=== PATIENT | female | born 1970 | race African-American/Black ===

== ENCOUNTER 2017-06-24 05:18 | Day surgery (SDC) | payer OTHER ==
[~2017-06-24] VITALS: Ht 175.3 cm; Wt 69.9 kg
--- NOTE | ~2017-06-24 | O ---
[facility] [place] [address] OPERATIVE REPORT Name: DUDLEY GONZALEZ Room #: 150-7 [facility] M.R.#: [id number] Admission: 06/24/17 Attend Phys: Seven Simms MD Discharge: Date of : 70 Report #: [id number] THIS REPORT FOR: //name// CC: Kalpesh Simms DATE OF SERVICE: 06/24/[address] Seven Simms and Dr. Kalpesh Riggs at [facility]. PREOPERATIVE DIAGNOSIS: Ventral incisional umbilical hernia. POSTOPERATIVE DIAGNOSIS: Ventral incisional umbilical hernia. PROCEDURE: Repair of an incarcerated ventral incisional umbilical hernia. SURGEON: Seven Simms M.D. ANESTHESIA: Local IV sedation. DESCRIPTION OF PROCEDURE: The patient was brought to the operating room and placed on operative table in the supine position. Sequential compression devices were in place for DVT prophylaxis. There was no indication for preoperative antibiotics. The patient underwent IV sedation. The abdomen was then prepped and draped in a sterile fashion. Skin and subcutaneous tissue were then infiltrated with 0.5% Marcaine and 1% Xylocaine in a 1:1 mixture. Infraumbilical skin incision was performed through the previous incision scar using a #15 scalpel blade. Hemostasis obtained using electrocautery. Dissection was carried down through subcutaneous tissue to the fascial defect. There was some omentum incarcerated within the hernia defect and this was dissected free and reduced back into the abdomen. There was an extensive amount of scarring around this area and that was all freed up. After freeing up the fascial defect, this was then closed using interrupted aagmgy-zz-ehtma 0 Prolene sutures. Deep and superficial subcutaneous tissue were then reapproximated using simple interrupted 2-0 chromic sutures and the skin then closed with a running 4-0 subcuticular Vicryl stitch. Wound was then dressed with Dermabond, Telfa, 4 x 4 gauze, sponge and tape. The patient was then awakened from the IV sedation, taken to recovery room in good condition. Estimated blood loss was approximately 5-10 mL and the patient tolerated procedure well. All sponge, lap and instrument counts correct x 2. <ELECTRONICALLY SIGNED> By: Seven Simms MD 06/26/17 1217 0955 1006 Seven Simms MD /nt
--- NOTE | ~2017-06-24 | H ---
[facility] [place] [address] HISTORY AND PHYSICAL Name: DUDLEY GONZALEZ Room #: 150-7 [facility] M.R.#: [id number] Admission: 06/24/17 Attend Phys: Seven Simms MD Discharge: Date of : 70 Report #: [id number] THIS REPORT FOR: //name// CC: Kalpesh Simms DATE OF SERVICE: 06/24/[address] Seven Simms and Dr. Kalpesh Riggs at [facility] CHIEF COMPLAINT: Abdominal bulge. HISTORY OF PRESENT ILLNESS: The patient is a 47-year-old female who has had a history of three laparoscopies in the past and notices a bulge in the umbilicus recently. PAST MEDICAL HISTORY: Migraine headaches, pituitary tumor, gastroesophageal reflux disease, thyroid disease, MURRAY for uterine fibroids, 3 laparoscopies. MEDICATIONS: Ibuprofen, amitriptyline, Amerge. FAMILY HISTORY: Mother of chronic obstructive pulmonary disease, diabetes, hypertension, congestive heart failure and coronary artery disease with myocardial infarction. Father with history of hypertension. ALLERGIES: No known drug allergies. SOCIAL HISTORY: Single. She does smoke and drinks alcohol. Two children. She is employed at [employer]. REVIEW OF SYSTEMS: Pertinent positives as above. Full review of systems is otherwise negative. PHYSICAL EXAMINATION: GENERAL: This is a well-developed, well-nourished, pleasant female, in no acute distress. VITAL SIGNS: Stable. She is afebrile. Height is 5 feet 9 inches, weight is 154 pounds. HEENT: Sclerae is nonicteric. Mucous membranes moist and pink. NECK: There is no adenopathy. LUNGS: Clear to auscultation bilaterally. CARDIOVASCULAR: Regular rate and rhythm. No murmurs, S3, S4. Normal PMI. ABDOMEN: Soft, flat, nontender, no palpable masses, no organomegaly. There is a palpable partially incarcerated umbilical hernia. No other organomegaly or [facility] [address] [place] [address] HISTORY AND PHYSICAL [facility] Room #: [address] [place] [address] M.R.#: [id number] Admission: 06/24/17 Attend Phys: Seven Simms MD Discharge: Date of : 70 Report #: [id number] masses. EXTREMITIES: No clubbing, cyanosis or edema. NEUROLOGIC: Intact with a clear mental status. IMPRESSION: A 47-year-old female with an incarcerated ventral incisional umbilical hernia. I have fully discussed with the patient the diagnosis, prognosis, and treatment options. I have recommended a repair of this ventral incisional umbilical hernia under local IV sedation as an outpatient. She states she understands and agrees with proposed surgery. <ELECTRONICALLY SIGNED> By: Seven Simms MD 06/24/17 0958 0946 John Simms MD /marlin
[~2017-06-24 05:18] MED LIST: BENTYL 20 MG TA20 M1 PO; IBUPROFEN 200200 M1 PO; IBUPROFEN 600600 M1 PO; NAPROSYN500 MG PO; NOHOMEMEDICATIONS; NORCO 5-325 TA1 EACH PO; OMEPRAZOLE 20 M20 M1 PO; ONDANSETRON HCL4 M2 PO; PHENERGAN 25 MG25 M1 PO; TYLENOL EXTRA500 MG
[2017-06-24 07:07] VITALS: BP 106/69
[2017-06-24] MEDS ORDERED: NORCO 5-325 TA1 EACH PO (08:31)
[2017-06-24 10:23] VITALS: BP 106/69
[2017-08-24] MEDS ORDERED: CENTANY30 GM TOP (12:56)
[2017-08-24] MEDS ORDERED: HYDROCODONE-AP1 EAC6 PO (13:10)
== END 2017-06-25 11:00 | disposition home or self-care (01) ==
LOC: TBA 05:18 → OR 05:18
DX: K43.0 Incisional hernia with obstruction, without gangrene (principal); G43.909 Migraine, unspecified, not intractable, without status migrainosus; E03.9 Hypothyroidism, unspecified; K21.9 Gastro-esophageal reflux disease without esophagitis; F17.200 Nicotine dependence, unspecified, uncomplicated; Z90.710 Acquired absence of both cervix and uterus; Z98.890 Other specified postprocedural states; Z79.891 Long term (current) use of opiate analgesic
CPT/HCPCS: 50010; 50101; 50386; 50417; 54118; 56524; 56525; 56526; 62110; 62850; 70005

== ENCOUNTER 2017-08-22 22:47 | Emergency (ER) | payer OTHER ==
[~2017-08-22] VITALS: Ht 175.3 cm; Wt 69.0 kg
--- NOTE | ~2017-08-22 | EKG ---
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
--- NOTE | ~2017-08-22 | EKG ---
[facility] [place] [address] ELECTROCARDIOGRAM REPORT Name: DUDLEY GONZALEZ [facility] [id number] Admission: 08/22/17 Attend Phys: Discharge: 08/23/17 Date of : 70 Report #: [id number] THIS REPORT FOR: //name// 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 : 1970 Requested By: Matt Sutton Order Number: [id number] MD: Chava Kat Measurements Intervals [place] Rate: 66 P: 45 [place]: 166 QRS: 49 QRSD: 83 T: 33 QT: 405 QTc: 425 Interpretive Statements Sinus rhythm Anteroseptal infarct, age indeterminate No previous ECG available for comparison Electronically Signed On 08-24-2017 9:16:09 CDT by Chava Kat [email or web address] <ELECTRONICALLY SIGNED> By: Chava Kat MD, [facility] 08/24/17 0916 0110 0110 Chava Kat MD, FACC /EPI
[2017-08-22 23:44] LABS: ABSOLUTE NEUTROPHILS 2.8 thou/uL (1.4-8.2); BASOPHILS 0.7 % (0.0-2.0); EOSINOPHILS 2.1 % (0.0-3.0); HEMATOCRIT 38.1 % (37.0-47.0); HEMOGLOBIN 12.4 gm/dL (12.0-15.0); LYMPHOCYTES 50.8 % (24.0-44.0); MCH 27.2 pg (26.0-34.0); MCHC 32.6 g/dL (28.0-37.0); MCV 83.4 fL (80.0-100.0); PLATELET COUNT 262 thou/uL (150-400); POLYS 36.4 % (36.0-66.0); RBC 4.57 mil/uL (4.20-5.00); RDW 14.8 % (10.5-14.5); WBC 7.8 thou/uL (4.0-11.0)
[2017-08-22 23:48] LABS: ANION GAP 9 mmol/L (7-16); BUN 13 mg/dL (7-18); CALCIUM 8.5 mg/dL (8.5-10.1); CHLORIDE 106 mmol/L (98-107); CO2 24 mmol/L (21-32); GLUCOSE 106 mg/dL (74-106); POTASSIUM 3.5 mmol/L (3.5-5.1); SODIUM 139 mmol/L (136-145)
[2017-08-22 23:54] LABS: ALBUMIN 3.8 g/dL (3.4-5.0); SGOT 17 U/L (15-37); SGPT 20 U/L (30-65); TOTAL BILIRUBIN 0.2 mg/dL (<0.1-1.0); TROPONIN-I < 0.04 ng/mL (<0.06)
[2017-08-24] MEDS ORDERED: CENTANY30 GM TOP (12:56)
[2017-08-24] MEDS ORDERED: HYDROCODONE-AP1 EAC6 PO (13:10)
== END 2017-08-23 02:11 | disposition home or self-care (01) ==
LOC: ER 22:47
PROVIDERS: Emergency Medicine
DX: R07.9 Chest pain, unspecified (principal); K21.9 Gastro-esophageal reflux disease without esophagitis; G43.909 Migraine, unspecified, not intractable, without status migrainosus; E03.9 Hypothyroidism, unspecified; Z90.710 Acquired absence of both cervix and uterus

== ENCOUNTER 2018-05-28 20:32 | Emergency (ER) | payer OTHER ==
[~2018-05-28] VITALS: Ht 175.3 cm; Wt 71.7 kg
[~2018-05-28 20:32] MED LIST changes: +CENTANY30 GM TOP; +HYDROCODONE-AP1 EAC6 PO
[2018-05-28] MEDS ORDERED: PROTONIX40 M1 PO (20:38)
[2018-05-28] MEDS ORDERED: FLUTICASONE PRO16 GM NASAL (20:39)
[2018-05-28] MEDS ORDERED: AMOXICILLIN500 M1 PO (20:40)
[2018-05-28] MEDS ORDERED: CLARITHROMYCIN500 MG PO (20:40)
[2018-05-28] MEDS ORDERED: MAPAP500 M1 PO (22:22)
[2018-05-28 22:45] VITALS: BP 107/73
== END 2018-05-28 22:46 | disposition home or self-care (01) ==
LOC: ER 20:32
DX: R22.42 Localized swelling, mass and lump, left lower limb (principal); K21.9 Gastro-esophageal reflux disease without esophagitis; G43.909 Migraine, unspecified, not intractable, without status migrainosus; E03.9 Hypothyroidism, unspecified; Z90.710 Acquired absence of both cervix and uterus; F17.210 Nicotine dependence, cigarettes, uncomplicated

== ENCOUNTER 2018-09-03 08:33 | Emergency (ER) | payer OTHER ==
[~2018-09-03] VITALS: Ht 175.3 cm; Wt 69.8 kg
[2018-09-03 08:33] VITALS: BP 131/90
[~2018-09-03 08:33] MED LIST changes: +AMOXICILLIN500 M1 PO; +CLARITHROMYCIN500 MG PO; +FLUTICASONE PRO16 GM NASAL; +MAPAP500 M1 PO; +PROTONIX40 M1 PO
[2018-09-03] MEDS ORDERED: DULCOLAX5 MG PO (08:50)
[2018-09-03] MEDS ORDERED: MIRALAX17 GM PO (08:50)
[2018-09-03] MEDS ORDERED: SINGULAIR 10 MG10 M1 PO (08:51)
== END 2018-09-03 18:39 | disposition home or self-care (01) ==
LOC: ER 08:33
DX: L81.8 Other specified disorders of pigmentation (principal); R21 Rash and other nonspecific skin eruption; K21.9 Gastro-esophageal reflux disease without esophagitis; G43.909 Migraine, unspecified, not intractable, without status migrainosus; E03.9 Hypothyroidism, unspecified; Z77.22 Contact with and (suspected) exposure to environmental tobacco smoke (acute) (chronic); Z90.710 Acquired absence of both cervix and uterus

== ENCOUNTER 2018-11-20 12:26 | Emergency (ER) | payer OTHER ==
[~2018-11-20] VITALS: Ht 175.3 cm; Wt 72.6 kg
[~2018-11-20 12:26] MED LIST changes: +DULCOLAX5 MG PO; +MIRALAX17 GM PO; +SINGULAIR 10 MG10 M1 PO
[2018-11-20 13:17] LABS: EOSINOPHILS 1.6 % (0.0-3.0); HEMATOCRIT 41.1 % (37.0-47.0); HEMOGLOBIN 13.4 gm/dL (12.0-15.0); LYMPHOCYTES 41.9 % (24.0-44.0); MCH 27.5 pg (26.0-34.0); MCHC 32.6 g/dL (28.0-37.0); MCV 84.4 fL (80.0-100.0); MONOCYTES 10.7 % (1.0-8.0); PLATELET COUNT 252 thou/uL (150-400); POLYS 44.8 % (36.0-66.0); RBC 4.87 mil/uL (4.20-5.00); WBC 6.7 thou/uL (4.0-11.0)
[2018-11-20 13:34] LABS: ANION GAP 7 mmol/L (7-16); BUN 11 mg/dL (7-18); CHLORIDE 103 mmol/L (98-107); CO2 26 mmol/L (21-32); GLUCOSE 100 mg/dL (74-106); POTASSIUM 3.9 mmol/L (3.5-5.1); SODIUM 136 mmol/L (136-145)
[2018-11-20 13:43] LABS: TROPONIN-I <0.06 ng/mL (<0.06)
[2018-11-20 15:11] VITALS: BP 115/82
--- NOTE | 2018-11-22 08:53 | EKG ---
[facility] [place] [address] [place] [address] ELECTROCARDIOGRAM REPORT Name: DUDLEY GONZALEZ [facility] [id number] ������������������ Admission: 11/20/18 ������������������ Attend Phys: Discharge: 11/20/18 ������������������ Date of : 70 Report #: [id number] ����������������������������������������������������������������� [id number] THIS REPORT FOR: //name// [facility] ED Test Date: 2018-11-20 Test Time: 12:36:25 Pat Name: DUDLEY GONZALEZ Department: Room: Gender: F Medical Support Specialist: CANDACE : 1970 Requested By: José Berrios Order Number: [id number] MD: Chava Kat Measurements Intervals [place] Rate: 75 P: 78 [place]: 170 QRS: 75 QRSD: 95 T: 14 QT: 373 QTc: 417 Interpretive Statements Sinus rhythm Anteroseptal infarct, age indeterminate Compared to ECG 08/24/2017 12:34:01 no significant change was found Electronically Signed On 11-22-2018 8:53:16 CDT by Chava Kat [email or web address] ��������������������������������������������� <ELECTRONICALLY SIGNED> ���������������������������������������� By: Chava Kat MD, [facility] ��������������������������������������������� 11/22/18 0853 1236 123 Chava Kat MD, FACC /EPI
== END 2018-11-20 15:13 | disposition home or self-care (01) ==
LOC: ER 12:26
PROVIDERS: Emergency Medicine
DX: R07.89 Other chest pain (principal); R42 Dizziness and giddiness; K21.9 Gastro-esophageal reflux disease without esophagitis; G43.909 Migraine, unspecified, not intractable, without status migrainosus; E03.9 Hypothyroidism, unspecified; F17.200 Nicotine dependence, unspecified, uncomplicated; Z79.899 Other long term (current) drug therapy; Z90.710 Acquired absence of both cervix and uterus

== ENCOUNTER 2019-04-01 16:06 | Emergency (ER) | payer OTHER ==
[~2019-04-01] VITALS: Ht 175.3 cm; Wt 72.1 kg
[2019-04-01 17:29] LABS: ABSOLUTE NEUTROPHILS 3.1 thou/uL (1.4-8.2); BASOPHILS 1.3 % (0.0-2.0); EOSINOPHILS 1.6 % (0.0-3.0); HEMATOCRIT 40.3 % (37.0-47.0); LYMPHOCYTES 45.5 % (24.0-44.0); MCH 27.2 pg (26.0-34.0); MCHC 32.2 g/dL (28.0-37.0); MCV 84.4 fL (80.0-100.0); MONOCYTES 9.4 % (1.0-8.0); PLATELET COUNT 231 thou/uL (150-400); POLYS 42.2 % (36.0-66.0); RBC 4.78 mil/uL (4.20-5.00); RDW 14.4 % (10.5-14.5); WBC 7.4 thou/uL (4.0-11.0)
[2019-04-01 17:36] LABS: CALCIUM 9.5 mg/dL (8.5-10.1); POTASSIUM 3.8 mmol/L (3.5-5.1)
[2019-04-01] MEDS ORDERED: ANUSOL-HC25 MG RECTAL (17:43)
[2019-04-01 18:14] VITALS: BP 115/81
== END 2019-04-01 18:15 | disposition home or self-care (01) ==
LOC: ER 16:06
PROVIDERS: Nurse Practitioner Family
DX: K60.2 Anal fissure, unspecified (principal); K62.5 Hemorrhage of anus and rectum; K21.9 Gastro-esophageal reflux disease without esophagitis; G43.909 Migraine, unspecified, not intractable, without status migrainosus; E03.9 Hypothyroidism, unspecified; Z79.899 Other long term (current) drug therapy; Z90.710 Acquired absence of both cervix and uterus

== ENCOUNTER 2019-09-14 12:29 | Emergency (ER) | payer OTHER ==
[~2019-09-14] VITALS: Ht 175.3 cm; Wt 70.3 kg
[~2019-09-14 12:29] MED LIST changes: +ANUSOL-HC25 MG RECTAL
[2019-09-14 13:29] LABS: BASOPHILS 1.3 % (0.0-2.0); EOSINOPHILS 1.6 % (0.0-3.0); HEMATOCRIT 39.9 % (37.0-47.0); HEMOGLOBIN 13.1 gm/dL (12.0-15.0); LYMPHOCYTES 43.9 % (24.0-44.0); MCH 27.8 pg (26.0-34.0); MCHC 32.9 g/dL (28.0-37.0); MCV 84.5 fL (80.0-100.0); PLATELET COUNT 266 thou/uL (150-400); POLYS 45.2 % (36.0-66.0); RBC 4.72 mil/uL (4.20-5.00); RDW 14.2 % (10.5-14.5); WBC 6.5 thou/uL (4.0-11.0)
[2019-09-14 13:33] LABS: ANION GAP 7 mmol/L (7-16); BUN 10 mg/dL (7-18); CALCIUM 8.6 mg/dL (8.5-10.1); CHLORIDE 103 mmol/L (98-107); CO2 27 mmol/L (21-32); GLUCOSE 107 mg/dL (74-106); POTASSIUM 3.5 mmol/L (3.5-5.1); SODIUM 137 mmol/L (136-145)
[2019-09-14] MEDS ORDERED: PROAIR HFA8.5 GM INH (13:40)
[2019-09-14 13:43] LABS: ALBUMIN 3.8 g/dL (3.4-5.0); SGOT 14 U/L (15-37); SGPT 21 U/L (30-65); TOTAL BILIRUBIN 0.3 mg/dL (<0.1-1.0); TOTAL PROTEIN 7.1 g/dL (6.4-8.2); TROPONIN-I <0.06 ng/mL (<0.06)
[2019-09-14] MEDS ORDERED: NORCO 5-325 TA1 EAC1 PO (14:27)
[2019-09-14] MEDS ORDERED: PREDNISONE 20 M20 M1 PO (14:43)
[2019-09-14 15:09] VITALS: BP 134/89
--- NOTE | 2019-09-15 08:02 | EKG ---
[facility] [place] [address] ELECTROCARDIOGRAM REPORT Name: DUDLEY GONZALEZ Room #: DEP [facility]#: [id number] Admission: 09/14/19 Attend Phys: Discharge: 09/14/19 Date of : 70 Report #: [id number] THIS REPORT FOR: cc: Kalpesh Riggs MD, Sequita MD Lundgren,Chava Xiao MD [facility] ~ THIS REPORT FOR: //name// [facility] ED Test Date: 2019-09-14 Test Time: 13:28:48 Pat Name: DUDLEY GONZALEZ Department: Room: Gender: F Eligibility Specialist: : 1970 Requested By: Naseem Nieves Order Number: [id number] MD: Chava Kat Measurements Intervals [place] Rate: 70 P: 70 [place]: 178 QRS: 70 QRSD: 90 T: 37 QT: 380 QTc: 410 Interpretive Statements Sinus rhythm Anteroseptal infarct, age indeterminate Compared to ECG 11/20/2018 12:36:25 No significant changes Electronically Signed On 09-15-2019 8:00:59 CDT by Chava Kat [email or web address] <ELECTRONICALLY SIGNED> By: Chava Kat MD, FAC 09/15/19 0800 1328 1328 Chava Kat MD, [facility] /EPI
== END 2019-09-14 15:09 | disposition home or self-care (01) ==
LOC: ER 12:29
PROVIDERS: Physician Assistant
DX: G43.909 Migraine, unspecified, not intractable, without status migrainosus (principal); M54.10 Radiculopathy, site unspecified; M79.602 Pain in left arm; M54.2 Cervicalgia; R42 Dizziness and giddiness; E03.9 Hypothyroidism, unspecified; K21.9 Gastro-esophageal reflux disease without esophagitis; M19.90 Unspecified osteoarthritis, unspecified site; Z90.710 Acquired absence of both cervix and uterus; Z77.22 Contact with and (suspected) exposure to environmental tobacco smoke (acute) (chronic)

== ENCOUNTER 2020-02-27 20:30 | Emergency (ER) | payer OTHER ==
[~2020-02-27] VITALS: Ht 175.3 cm; Wt 71.7 kg
[~2020-02-27 20:30] MED LIST changes: +NORCO 5-325 TA1 EAC1 PO; +PREDNISONE 20 M20 M1 PO; +PROAIR HFA8.5 GM INH
[2020-02-27] MEDS ORDERED: GABAPENTIN100 MG PO (21:01)
[2020-02-27] MEDS ORDERED: NURTEC ODT75 MG PO (21:01)
[2020-02-27] MEDS ORDERED: DRIZALMA SPRINK20 MG PO (21:02)
[2020-02-27 23:24] LABS: ABSOLUTE NEUTROPHILS 3.6 thou/uL (1.4-8.2); EOSINOPHILS 2.4 % (0.0-3.0); HEMATOCRIT 41.8 % (37.0-47.0); HEMOGLOBIN 13.4 gm/dL (12.0-15.0); LYMPHOCYTES 43.3 % (24.0-44.0); MCH 27.4 pg (26.0-34.0); MCHC 32.1 g/dL (28.0-37.0); MCV 85.2 fL (80.0-100.0); MONOCYTES 8.3 % (1.0-8.0); PLATELET COUNT 243 thou/uL (150-400); RDW 14.2 % (10.5-14.5); WBC 7.9 thou/uL (4.0-11.0)
[2020-02-27 23:48] LABS: ANION GAP 10 mmol/L (7-16); BUN 10 mg/dL (7-18); CALCIUM 9.1 mg/dL (8.5-10.1); CHLORIDE 104 mmol/L (98-107); CO2 28 mmol/L (21-32); GLUCOSE 113 mg/dL (74-106); SODIUM 142 mmol/L (136-145)
[2020-02-27 23:59] LABS: ALBUMIN 3.9 g/dL (3.4-5.0); SGOT 21 U/L (15-37); SGPT 32 U/L (30-65); TOTAL BILIRUBIN 0.3 mg/dL (0.2-1.0); TOTAL PROTEIN 7.6 g/dL (6.4-8.2); TROPONIN-I <0.06 ng/mL (<0.06)
[2020-02-28 01:01] VITALS: BP 107/71
--- NOTE | 2020-02-29 07:51 | EKG ---
[facility] [place] [address] ELECTROCARDIOGRAM REPORT Name: DUDLEY GONZALEZ Room #: [facility]#: [id number] Admission: 02/27/20 Attend Phys: Discharge: 02/28/20 Date of : 70 Report #: [id number] THIS REPORT FOR: cc: [facility] - Clinic physician unknown [facility] - Clinic physician unknown Chava Kat MD [facility] ~ THIS REPORT FOR: //name// [facility] ED Test Date: 2020-02-27 Test Time: 20:59:18 Pat Name: DUDLEY GONZALEZ Department: Room: Gender: F [employer] Supervisor: nidia : 1970 Requested By: Mehrdad Temple Order Number: [id number] MD: Chava Kat Measurements Intervals [place] Rate: 71 P: 77 [place]: 171 QRS: 81 QRSD: 86 T: 5 QT: 411 QTc: 447 Interpretive Statements Sinus rhythm Probable left atrial enlargement Anteroseptal infarct, age indeterminate Compared to ECG 09/14/2019 13:28:48 No significant changes Electronically Signed On 02-29-2020 7:51:03 SUPPLY CHAIN SPECIALIST by Chava Kat [email or web address] <ELECTRONICALLY SIGNED> By: Chava Kat MD, FACC 02/29/20 0751 58 58 Chava Kat MD, [facility] /EPI
== END 2020-02-28 01:02 | disposition home or self-care (01) ==
LOC: ER 20:30
PROVIDERS: Emergency Medicine
DX: R07.89 Other chest pain (principal); G43.909 Migraine, unspecified, not intractable, without status migrainosus; R11.2 Nausea with vomiting, unspecified; R06.02 Shortness of breath; R42 Dizziness and giddiness; R20.0 Anesthesia of skin; K21.9 Gastro-esophageal reflux disease without esophagitis; E03.9 Hypothyroidism, unspecified; M19.09 Primary osteoarthritis, other specified site; Z90.710 Acquired absence of both cervix and uterus; Z79.899 Other long term (current) drug therapy